=== PATIENT | female | born 1990 | race Caucasian/White ===

== ENCOUNTER → 2017-03-16 | Outpatient (CLI) | payer OTHER ==
[2017-03-16 17:20] LABS: BLOOD UREA NITROGEN 13 mg/dl (7-18); BUN/CREATININE RATIO 9.9 (10-20); CALCIUM 9.1 mg/dl (8.5-10.1); CARBON DIOXIDE 29 mmol/L (21-32); CHLORIDE 103 mmol/L (98-107); CHOLESTEROL 275 mg/dl (0-200); GLUCOSE,FASTING 95 mg/dl (70-99); POTASSIUM 4.3 mmol/L (3.5-5.1); SODIUM 136 mmol/L (136-145)
[2017-03-16 17:51] LABS: CHOLESTEROL/HDL RATIO 4.3; HDL CHOLESTEROL 64 mg/dl; LDL CHOLESTEROL CALCULATED 185 mg/dl; TRIGLYCERIDES 130 mg/dl (0-150); VERY LOW DENSITY LIPOPROT CALC 26 mg/dl
== END | disposition home or self-care (01) ==
LOC: C.LABPBG 13:08
PROVIDERS: ATTEND Physician Assistant
DX: E03.9 Hypothyroidism, unspecified (principal); Z00.00 Encounter for general adult medical examination without abnormal findings

== ENCOUNTER → 2017-05-04 | Outpatient (CLI) | payer OTHER ==
[2017-05-04 17:24] LABS: BLOOD UREA NITROGEN 10 mg/dl (7-18); BUN/CREATININE RATIO 9.5 (10-20); CALCIUM 9.1 mg/dl (8.5-10.1); CARBON DIOXIDE 24 mmol/L (21-32); CHLORIDE 104 mmol/L (98-107); CREATININE 1.04 mg/dl (0.60-1.20); GLUCOSE 105 mg/dl (70-99); POTASSIUM 3.4 mmol/L (3.5-5.1); SODIUM 135 mmol/L (136-145)
== END | disposition home or self-care (01) ==
LOC: C.LABPBG 11:46
PROVIDERS: ATTEND Family Medicine
DX: E03.9 Hypothyroidism, unspecified (principal); R79.89 Other specified abnormal findings of blood chemistry

== ENCOUNTER → 2017-06-27 | Outpatient (CLI) | payer OTHER ==
[2017-06-27 13:17] LABS: BLOOD UREA NITROGEN 17 mg/dl (7-18); CALCIUM 9.6 mg/dl (8.5-10.1); CARBON DIOXIDE 28 mmol/L (21-32); GLUCOSE 101 mg/dl (70-99); SODIUM 137 mmol/L (136-145)
== END | disposition home or self-care (01) ==
LOC: C.LABPBG 09:36
PROVIDERS: ATTEND Family Medicine
DX: E87.6 Hypokalemia (principal)

== ENCOUNTER → 2017-10-17 | Outpatient (CLI) | payer OTHER ==
[2017-10-17 17:11] LABS: ALBUMIN 4.3 gm/dl (3.4-5.0); ALKALINE PHOSPHATASE 70 U/L (45-117); ALT/SGPT 27 U/L (12-78); AST/SGOT 47 U/L (15-37); BLOOD UREA NITROGEN 11 mg/dl (7-18); CARBON DIOXIDE 27 mmol/L (21-32); CHOLESTEROL 221 mg/dl (0-200); GLUCOSE 88 mg/dl (70-99); LDL CHOLESTEROL CALCULATED 143 mg/dl; POTASSIUM 3.8 mmol/L (3.5-5.1); SODIUM 137 mmol/L (136-145); TOTAL PROTEIN 8.4 gm/dl (6.4-8.2)
== END | disposition home or self-care (01) ==
LOC: C.LABPBG 12:21
PROVIDERS: ATTEND Family Medicine
DX: E03.9 Hypothyroidism, unspecified (principal); E78.5 Hyperlipidemia, unspecified

== ENCOUNTER → 2017-10-24 | Outpatient (CLI) | payer OTHER ==
[2017-10-24 17:18] LABS: BLOOD UREA NITROGEN 18 mg/dl (7-18); CALCIUM 9.1 mg/dl (8.5-10.1); CARBON DIOXIDE 26 mmol/L (21-32); CREATININE 1.09 mg/dl (0.60-1.20); GLUCOSE 81 mg/dl (70-99); POTASSIUM 3.9 mmol/L (3.5-5.1); SODIUM 135 mmol/L (136-145)
== END | disposition home or self-care (01) ==
LOC: C.LABPBG 12:19
PROVIDERS: ATTEND Family Medicine
DX: Z00.00 Encounter for general adult medical examination without abnormal findings (principal)

== ENCOUNTER → 2017-12-24 | Outpatient (CLI) | payer OTHER | END | disposition home or self-care (01) | LOC: C.PAPS 18:19 | PROVIDERS: ATTEND Obstetrics & Gynecology | DX: Z12.4 Encounter for screening for malignant neoplasm of cervix (principal) ==

== ENCOUNTER → 2017-12-24 | Outpatient (CLI) | payer OTHER | END | disposition home or self-care (01) | LOC: C.LABSPEC 17:50 | PROVIDERS: ATTEND Obstetrics & Gynecology | DX: Z36.89 Encounter for other specified antenatal screening (principal) ==

== ENCOUNTER → 2017-12-25 | Outpatient (CLI) | payer OTHER ==
[2017-12-25 16:43] LABS: BASO % 0.2 %; BASO ABS # 0.02 K/uL (0-0.2); EOS % 0.7 %; EOS ABS # 0.06 K/uL (0-0.5); HEMATOCRIT 35.6 % (37-47); HEMOGLOBIN 12.1 g/dL (12.0-16.0); IG# 0.02 K/uL (0.00-0.02); LYMPH % 17.7 %; LYMPH ABS # 1.48 K/uL (1.2-3.4); MEAN CELL VOLUME 87.7 fL (80-100); MEAN CORPUSCULAR HEMOGLOBIN 29.8 pg (25-34); MEAN PLATELET VOLUME 10.4 fL (7.4-10.4); MONO % 2.5 %; MONO ABS # 0.21 K/uL (0.11-0.59); NEUT % 78.7 %; NEUT ABS # 6.58 K/uL (1.4-6.5); PLATELET COUNT 329 K/uL (130-400); RED CELL DISTRIBUTION WIDTH CV 12.1 % (11.5-14.5); RED CELL DISTRIBUTION WIDTH SD 38.5 fL (36.4-46.3); WHITE BLOOD COUNT 8.37 K/uL (4.8-10.8)
== END | disposition home or self-care (01) ==
LOC: C.LABPBG 13:58
PROVIDERS: ATTEND Obstetrics & Gynecology
DX: E03.9 Hypothyroidism, unspecified (principal); Z36.89 Encounter for other specified antenatal screening

== ENCOUNTER 2020-09-14 05:25 | Inpatient (IN) ==
--- NOTE | 2020-07-20 13:54 | Anesthesiology Consultation ---
Date of Service July 20, 2020 Assessment & Plan (1) Encounter for pre-operative examination: Per assessment on 07/20: Travel screen negative. No known COVID-19 positive contacts or current COVID-19 related symptoms. Surgeon arranging preop COVID testing (scheduled 09/07; EDITH Gutiérrez). Awaiting results. Chart Review Chart Review: Patient NOT seen in Pre Admission Testing and windows vmware engineer initiated History Surgery Operation Date: 09/14/20 07:30 Proposed Procedures p Section in LD - Ella Tang MD, FACOG Height/Weight Height: 4 ft 9 in Weight: 90.718 kg Allergies Allergy/AdvReac Type Severity Reaction Status Date / Time No Known Drug Allergies Allergy Verified 07/20/20 13:20 Medications Home Medications Medication Instructions Recorded Confirmed Last Taken albuterol sulfate 2 inha INH QID PRN #6.7 gm 03/26/19 07/20/20 Unknown aspirin [Aspir-81] 81 mg PO HS 07/20/20 07/20/20 Unknown cholecalciferol (vitamin D3) 50 mcg PO PM 07/20/20 07/20/20 Unknown famotidine [Pepcid] 20 mg PO DAILY PRN 07/20/20 07/20/20 Unknown levothyroxine 75 mcg PO QAM 07/20/20 07/20/20 Unknown levothyroxine 200 mcg PO QAM 07/20/20 07/20/20 Unknown no.144-folic acid 1 tab PO PM 07/20/20 07/20/20 Unknown [] Past Medical History Medical History (Updated 07/20/20 @ 13:52 by Ella Moore) Acid reflux pepcid prn Anti-M isoimmunization affecting , antepartum being monitored with OB Anxiety no meds at present CKD (chronic kidney disease) stage 3, under surveillance, most recent available creatinine WNL (03/15/20 creatinine 0.72) Depression no meds at present High cholesterol Hx of bronchitis reason inh prescribed > rare use, no recent issues Hypothyroidism Past Family History Family History Family/Other Cardiac disorder paternal GF Carcinoma of blood vessel Father Drinking problem History of anemia Depression Liver disease Hypothyroidism Sister Depression Grandmother (Paternal) Hyperthyroidism Grandmother (Paternal) Diabetes Hypertension Grandmother (Maternal) Diabetes Other Alcohol abuse by father No pertinent family history Denies family history of Colon cancer Ovarian cancer Prostate cancer Myocardial infarction Breast cancer Past Surgical History Surgical History (Updated 07/20/20 @ 13:30 by Lupe Mcconnell RN) H/O section x1 History of myringotomy Social History Smoking Status: Never smoker Do You Dip or Chew Tobacco: No Hx Alcohol Use: No Hx Substance Use: No substance use type: does not use Testing Laboratory Results 06/30/20 H/H 10.07/03.6 TSH 50.600 FREE T4 0.59 OB aware. Fluctuating thyroid levels (improved from 03/2020 labs, worsened from 05/2020 labs) > Thyroid labs/levothyroxine dose under close surveillance by PCP/OB > PCP aware of 06/2020 results and have been trying to set patient up with endocrine (patient has refused previously) > levels planned to be rechecked multiple times by PCP ([facility]/Dr. Fernando) prior to scheduled c/s (planned for q4 weeks) and PCP/OB attempting to have patient evaluated by endocrine prior to c/s. 03/15/20 WBC 9.12 PLATELETS 343 SODIUM 137 POTASSIUM 3.4 CHLORIDE 106 CO2 23 BUN 10 CREATININE 0.72 GLUCOSE 87 01/14/20 hgba1c 5.3%
--- NOTE | 2020-09-08 14:57 | PAT Medication Instructions ---
Medication Instructions Date of Service September 08, 2020 Home Medications Medication Instructions Recorded albuterol sulfate 2 inha INH QID PRN #6.7 gm 03/26/19 levothyroxine 150 mcg capsule 150 mcg PO DAILY #30 cap 08/12/20 levothyroxine 200 mcg tablet 200 mcg PO QAM #30 tab 08/12/20 albuterol sulfate 2 inha INH QID PRN aspirin [Aspir-81] 81 mg PO HS cholecalciferol (vitamin D3) 50 mcg PO PM famotidine [Pepcid] 20 mg PO DAILY PRN no.144-folic acid [] 1 tab PO PM levothyroxine 150 mcg capsule 150 mcg PO DAILY levothyroxine 200 mcg tablet 200 mcg PO QAM ASK your surgeon for instructions aspirin [Aspir-81] 81 mg PO HS Take morning of surgery With a small sip of water, OTHERWISE NOTHING TO EAT OR DRINK AFTER MIDNIGHT: albuterol sulfate 2 inha INH QID PRN (if needed, and bring with you to the hospital) famotidine [Pepcid] 20 mg PO DAILY PRN (if needed) levothyroxine 150 mcg capsule 150 mcg PO DAILY levothyroxine 200 mcg tablet 200 mcg PO QAM Take evening before surgery albuterol sulfate 2 inha INH QID PRN (if needed) cholecalciferol (vitamin D3) 50 mcg PO PM famotidine [Pepcid] 20 mg PO DAILY PRN (if needed) no.144-folic acid [] 1 tab PO PM Other Notes If you have any questions please call us at [phone] or [phone] or [phone] or [phone]
--- NOTE | 2020-09-13 11:56 | Anesthesiology Consultation ---
Date of Service September 13, 2020 Assessment & Plan (1) Encounter for pre-operative examination: COVID Status: As of 09/13 assessment, patient denies travel to endemic area, known exposure/sick contacts, or symptoms of COVID19. Patient instructed that they and their household members must follow strict social distancing guidelines, wear a mask in public and avoid travel/events/gatherings for 14 days prior to surgery. Preoperative COVID19 testing to be completed prior to surgery per surgeon's arrangements. Patient made aware to self-isolate as much as possible between COVID testing and surgery. CBC and Type and Screen still pending. Patient has known h/o antibodies. Extra tubes of blood were drawn at request of Blood Bank. PCP notified of change in TSH/normal T4. Chart Review Chart Review: Acceptable Risk for Surgery and Patient seen in Pre Admission Testing Teaching & Discussion Instructed NPO after midnight before surgery, except medications with 15 cc of water. Medication instructions provided according to the PAT guidelines. History Surgery Operation Date: 09/14/20 07:30 Proposed Procedures p Section - Ella Tang MD, FACOG Height/Weight Height: 4 ft 9 in Weight: 91.9 kg Allergies Allergy/AdvReac Type Severity Reaction Status Date / Time No Known Drug Allergies Allergy Verified 09/13/20 10:33 Medications Home Medications Medication Instructions Recorded Confirmed Last Taken albuterol sulfate 2 inha INH QID PRN #6.7 gm 03/26/19 09/13/20 Unknown aspirin [Aspir-81] 81 mg PO HS 07/20/20 09/13/20 Unknown cholecalciferol (vitamin D3) 50 mcg PO PM 07/20/20 09/13/20 Unknown famotidine [Pepcid] 20 mg PO DAILY PRN 07/20/20 09/13/20 Unknown no.144-folic acid 1 tab PO PM 07/20/20 09/13/20 Unknown [] levothyroxine 150 mcg capsule 150 mcg PO DAILY #30 cap 08/12/20 09/13/20 Unknown levothyroxine 200 mcg tablet 200 mcg PO QAM #30 tab 08/12/20 09/13/20 Unknown Past Medical History Medical History Acid reflux pepcid prn Anti-M isoimmunization affecting , antepartum being monitored with OB Anxiety no meds at present CKD (chronic kidney disease) stage 3, under surveillance, most recent available creatinine WNL (03/15/20 creatinine 0.72) Depression no meds at present High cholesterol Hx of bronchitis reason inh prescribed > rare use, no recent issues Hypothyroidism TSH has been significantly abnormal throughout . Pt was referred to endocrine but never went. Most recent TSH 190, but Free T4 normal (08/11/20). Obesity affecting Exercise / Class Metabolic Activity II 4-5 Yardwork/Stairs/Walk up hill (No CP or SOB with 1 FOS when not ) Past Family History Family History Family/Other Cardiac disorder paternal GF Carcinoma of blood vessel Father Drinking problem History of anemia Depression Liver disease Hypothyroidism Sister Depression Grandmother (Paternal) Hyperthyroidism Grandmother (Paternal) Diabetes Hypertension Grandmother (Maternal) Diabetes Other Alcohol abuse by father No pertinent family history Denies family history of Colon cancer Ovarian cancer Prostate cancer Myocardial infarction Breast cancer Past Surgical History Surgical History (Updated 09/13/20 @ 15:32 by Napoleon Wilde) H/O section x1. Pt reports no issues with this sx. History of myringotomy Past Anesthesia History No Hx of Anesthesia Complications and No Family Hx of Anesthesia Complications History of PONV No Hx of PONV and No Hx of Motion Sickness Social History Smoking Status: Never smoker Do You Dip or Chew Tobacco: No Hx Alcohol Use: No Hx Substance Use: No substance use type: does not use Review of Systems Pt denies any recent chest pain, shortness of breath, palpitations, cough, fever, URI, or uncontrolled acid reflux. Physical Exam Vital Signs BP: 118/80 P: 87bpm SPO2: 98% RA T: R: ENMT Mouth: no dental restorations, no chipped teeth and no loose teeth Thyromental Distance: > or= 3.5 Finger Breadths Mallampati Class: III Neck normal visual inspection; neck extension not limited Respiratory normal respiratory effort, lungs clear to auscultation Cardiovascular Rate/Rhythm: regular rate and regular rhythm Heart Sounds: no murmur Extremities: + edema (trace B/L) Lab Results Anesthesia Preop Results Results Anesthesia Widget: TSH 0.164 uIu/ml (0.300-4.500) L 09/13/20 Free T4 1.47 ng/dl (0.8-1.6) 09/13/20
--- NOTE | 2020-09-13 17:43 | History & Physical Report ---
Date of Service September 13, 2020 Assessment & Plan (1) Supervision of high risk , antepartum: IUP at 39 weeks presents for repeat C/S today's TSH is now within the normal range as is the free T4. the procedure as well as the risks were reviewed with the patient and her . all questions were answered to their satisfaction and they are willing to proceed. History of Present Illness Primary Care Provider: Casie Fernando DO Patient is a 29 yo white female EDC 09/21/20 who presents at 39 weeks for repeat C/S. First C/S was done for arrest of dilation at 9cm. Patient now presents at 39 weeks for repeat C/S. this time has been complicated by anti-M antibody but FOB was tested and is positive for the M antigen.anti-M titers never jose above 1:8. She has also had markedly elevated TSH during this despite increases in Synthroid doses. She had not been seen by Endocrine despite our best efforts and Dr. Fernando's as well to get her scheduled for a follow up. Allergies Allergy/AdvReac Type Severity Reaction Status Date / Time No Known Drug Allergies Allergy Verified 09/13/20 10:33 Home Medications Medication Instructions Recorded Confirmed Type albuterol sulfate 2 inha INH QID PRN #6.7 gm 03/26/19 09/13/20 Rx aspirin [Aspir-81] 81 mg PO HS 07/20/20 09/13/20 History cholecalciferol (vitamin D3) 50 mcg PO PM 07/20/20 09/13/20 History famotidine [Pepcid] 20 mg PO DAILY PRN 07/20/20 09/13/20 History no.144-folic acid 1 tab PO PM 07/20/20 09/13/20 History [] levothyroxine 150 mcg capsule 150 mcg PO DAILY #30 cap 08/12/20 09/13/20 Rx levothyroxine 200 mcg tablet 200 mcg PO QAM #30 tab 08/12/20 09/13/20 Rx Patient History Medical History Acid reflux pepcid prn Anti-M isoimmunization affecting , antepartum being monitored with OB Anxiety no meds at present CKD (chronic kidney disease) stage 3, under surveillance, most recent available creatinine WNL (03/15/20 creatinine 0.72) Depression no meds at present High cholesterol Hx of bronchitis reason inh prescribed > rare use, no recent issues Hypothyroidism TSH has been significantly abnormal throughout . Pt was referred to endocrine but never went. Most recent TSH 190, but Free T4 normal (08/11/20). Obesity affecting Surgical History H/O section x1. Pt reports no issues with this sx. History of myringotomy Family History Family/Other Cardiac disorder paternal GF Carcinoma of blood vessel Father Drinking problem History of anemia Depression Liver disease Hypothyroidism Sister Depression Grandmother (Paternal) Hyperthyroidism Grandmother (Paternal) Diabetes Hypertension Grandmother (Maternal) Diabetes Other Alcohol abuse by father No pertinent family history Denies family history of Colon cancer Ovarian cancer Prostate cancer Myocardial infarction Breast cancer Social History Smoking Status: Never smoker Second Hand Exposure: Yes (boyfriend); Hx Alcohol Use: No Hx Substance Use: No Preferred Language: Syrian Communication Ability: Effective Visual Impairment: No Limitations Hearing Ability: Hard of Hearing [employer] Required: No Beliefs That Will Affect Care: None marital status: Single marital status details: Jozef (24)- [phone] Current Living Situation: Parent and Family Current Living Situation Comment: boyfriend, son, cat (boyfriend does litter) current occupational status: employed current occupation: [employer] associate Feels Safe at Home: Yes Dental Care, Regularly: Yes Physical Activity Frequency: 3-4 Times per Week Seatbelt Use: always Sunscreen Use: Yes Assistive Devices: None Review of Systems All systems reviewed & are unremarkable except as noted in HPI & below Physical Exam Constitutional: WD/WN, vitals as above Respiratory: normal respiratory effort, lungs clear to auscultation Cardiovascular: RRR, no murmur, no edema Gastrointestinal (Abdomen): normal bowel sounds, soft, nontender, no hepatosplenomegaly Inspection/Auscultation: + abdominal surgical scar (well healed -low transverse) Genitourinary: OB Exam Abdomen: + fundal height (term), + heart tones, + vertex (140 bpm) and + estimated weight (7-8 pounds) Coding Level of Care Code None Diagnoses Supervision of high risk , antepartum O09.90
[2020-09-14] MEDS ORDERED: SODIUM CHLORIDE 0.9% 250 ML IV PRN (05:37)
[2020-09-14 05:55] LABS: Basophils # (auto) 0.02 K/uL (0-0.2); Basophils % (auto) 0.3 %; Eosinophils # (auto) 0.04 K/uL (0-0.5); Eosinophils % (auto) 0.5 %; Hematocrit (blood only) 27.8 % (37-47); Hemoglobin 8.8 g/dL (12.0-16.0); Immature Granulocytes # (auto) 0.07 K/uL (0.00-0.02); Immature Granulocytes % (auto) 0.9 %; Lymphocytes # (auto) 1.56 K/uL (1.2-3.4); Lymphocytes % (auto) 19.6 %; Mean Corpuscular Hemoglobin 25.6 pg (25-34); Mean Corpuscular Hgb Conc 31.7 g/dL (32-36); Mean Corpuscular Volume 80.8 fL (80-100); Monocytes # (auto) 0.44 K/uL (0.11-0.59); Monocytes % (auto) 5.5 %; Neutrophils # (auto) 5.81 K/uL (1.4-6.5); Neutrophils % (auto) 73.2 %; Platelet Count 280 K/uL (130-400); RDW Coefficient of Variation 15.2 % (11.5-14.5); Red Blood Count 3.44 M/uL (4.2-5.4); White Blood Count 7.94 K/uL (4.8-10.8)
[2020-09-14] MEDS ORDERED: CITRIC ACID/SODIUM CITRATE 15 ML UDC PO SCH (06:00)
[2020-09-14] MEDS ORDERED: LACTATED RINGER'S 1,000 ML IV SCH ×2 (06:00→09:00)
[2020-09-14] MEDS ORDERED: ceFAZolin 3,000 MG in DEXTROSE 5% 50 ML IV SCH (06:00)
[2020-09-14] MEDS ORDERED: MoRPHine SULFATE PF 1 MG/ML 10 ML AMP/VIAL ONE (07:07)
[2020-09-14] MEDS ORDERED: ONDANSETRON INJ 2 MG/ML 2 ML VIAL ONE (07:07)
[2020-09-14] MEDS ORDERED: fentaNYL citrate 100 MCG/2 ML VIAL ONE (07:07)
[2020-09-14] MEDS ORDERED: SODIUM CHLORIDE 0.9% INJ 10 ML VIAL ONE (07:08)
[2020-09-14] MEDS ORDERED: OXYTOCIN 10 UNITS/ML VIAL ONE (07:08)
--- NOTE | 2020-09-14 07:28 | History & Physical Bridge Note ---
Date of Service September 14, 2020 History & Physical Bridge Note I have examined the patient, reviewed the History & Physical and in the interval since the performance of the History & Physical I have noted the following changes of clinical significance: no changes noted
[2020-09-14] MEDS ORDERED: NALOXONE HCL 0.08 MG in SYRINGE 1.8 ML IV PRN (07:44)
[2020-09-14] MEDS ORDERED: diphenhydrAMINE 50 MG/ML VIAL IV PRN (07:44)
[2020-09-14] MEDS ORDERED: ePHEDrine sulfate 50 MG/ML AMP IV PRN (07:44)
[2020-09-14] MEDS ORDERED: ACETAMINOPHEN 1000 MG/100 ML IV IV PRN (07:44)
[2020-09-14] MEDS ORDERED: MoRPHine SULFATE PF 1 MG/ML 10 ML AMP/VIAL INT SPINAL ONE (07:44)
[2020-09-14] MEDS ORDERED: NALOXONE HCL 0.4 MG/1 ML VIAL/CARP IV PRN (07:44)
[2020-09-14] MEDS ORDERED: LACTATED RINGER'S 500 ML IV PRN (07:44)
[2020-09-14] MEDS ORDERED: NALOXONE HCL 1 MG in SODIUM CHLORIDE 0.9% 1000ML 1,000 ML IV PRN (07:44)
[2020-09-14] MEDS ORDERED: ONDANSETRON INJ 2 MG/ML 2 ML VIAL IV PRN (07:44)
[2020-09-14] MEDS ORDERED: HYDROmorphone INJ 0.5 MG/0.5 ML SYR IV PRN (07:44)
[2020-09-14] MEDS ORDERED: SODIUM CHLORIDE 0.9% 1000ML 1,000 ML IV SCH (07:45)
[2020-09-14] MEDS ORDERED: DC INTRASPINAL MORPHINE SCH (07:45)
[2020-09-14] MEDS ORDERED: NO NARCOTICS OR SEDATIVES SCH (07:45)
[2020-09-14] MEDS ORDERED: ePHEDrine sulfate 50 MG/ML SYR ONE (08:17)
[2020-09-14] MEDS ORDERED: PHENYLEPHRINE 100MCG/ML 5ML SYR ONE (08:17)
[2020-09-14] MEDS ORDERED: KETOROLAC 30 MG/ML VIAL IV PRN (08:47)
[2020-09-14] MEDS ORDERED: ALBUTEROL HFA 8 GM INHALER INH PRN (08:55)
[2020-09-14] MEDS ORDERED: FAMOTIDINE 20 MG TAB PO PRN (08:55)
--- NOTE | 2020-09-14 08:55 | Post Operative Brief Note ---
PG Immediate Post Op with CF Date of Surgery September 14, 2020 Pre & Post Diagnosis Operation Date: 09/14/20 07:30 Pre-Op Diagnosis: Hx of Section; Desires Repeat Section Post-Op Diagnosis: Same as Preop I identified the patient and participated in the time-out.: Yes Procedure Operation Date: 09/14/20 07:30 Actual Procedures p Section; Live Male at 0821 in OR # 3(Bilateral) - Ella Tang MD, FACOG Surgeon Ella Tang MD, FACOG Manager Floor Kaylynn Eisenberg MD Estimated Blood Loss 500 Findings Consistent with Post-Op Diagnosis Specimens Specimen Description: Placenta (Hold) Cord Blood Drains Rice Catheter
[2020-09-14] MEDS ORDERED: DIPHTHERIA/TETANUS/PERTUSSIS 0.5 ML SYR/VIAL IM ONE (08:58)
[2020-09-14] MEDS ORDERED: SENNA 8.6 MG TAB PO PRN (08:58)
[2020-09-14] MEDS ORDERED: SUPERCREAM 0.870% 15 GM JAR EXT PRN (08:58)
[2020-09-14] MEDS ORDERED: BENZOCAINE 20% AER SPR 82.5 GM CAN EXT PRN (08:58)
[2020-09-14] MEDS ORDERED: HYDROCORTISONE ACETATE 25 MG SUPP PR PRN (08:58)
[2020-09-14] MEDS ORDERED: MAGNESIUM HYDROXIDE SUSP 30 ML UDC PO PRN (08:58)
[2020-09-14] MEDS ORDERED: LEVOTHYROXINE SODIUM 125 MCG TABLET PO SCH (09:00)
[2020-09-14] MEDS: OXYTOCIN 20 UNITS in LACTATED RINGER'S 1,000 ML IV SCH ×2 (10:15→21:12)
--- NOTE | 2020-09-14 11:02 | Operative Report ---
PG Post Operative Report Pre & Post Diagnosis Operation Date: 09/14/20 07:30 Pre-Op Diagnosis: Hx of Section; Desires Repeat Section Post-Op Diagnosis: Same as Preop I identified the patient and participated in the time-out.: Yes Procedure Operation Date: 09/14/20 07:30 Actual Procedures p Section; Live Male at 0821 in OR # 3(Bilateral) - Ella Tang MD, FACOG Surgeon Ella Tang MD, FACOG Professor Of Communication Kaylynn Eisenberg MD Estimated Blood Loss 500 Findings Consistent with Post-Op Diagnosis Uterus was gravid and consistent with a term in size bilateral ovaries and Tubes were grossly normal.There were filmy omental adhesions to the anterior surface of the fundus of the uterus which were divided with the Bovie. The lower uterine segment was also noted to be quite thin. Specimens placenta on hold Drains Rice to straight drainage- cleare urine at the end of the case. Anesthesia Type Spinal Complications none Disposition Accompanied Patient To Recovery: Yes Disposition: L&D Indications Patient is a 29-year-old 2 para 1-0-0-1 white female who presents at 39 weeks for repeat section. First section was done because of failure to progress. This has been complicated by hypothyroid thyroidism which was difficult to control, anti-M isoimmunization for which titers never jose above 128. She also has stage III chronic kidney disease which remained stable throughout her . Patient is requesting repeat section she understands the risk procedure and is willing to proceed. Description of Procedure At the patient was prepped and draped in the usual sterile fashion a low transverse skin incision was made with a scalpel and carried to the fascia with the same scalpel. The fascial incision was then extended with bandage scissors and the other edges grasped with Vandana clamps. The underlying rectus muscles were bluntly and sharply dissected off of the overlying fascia. The rectus muscles were then divided on the midline with after entering the peritoneal cavity with a hemostat. A knife was used to divide the rectus muscles along the midline. Metzenbaum scissors were used to take the bladder down off of the anterior surface of the uterus. The lower uterine segment was noted to be quite thin. This was entered with a scalpel to the level of the membranes. There was thin meconium staining of the amniotic fluid noted after rupturing. The was delivered from the vertex presentation with moderate fundal pressure. A vacuum was used to assist the head into the uterine incision. After the head was delivered the right hand was delivered through the uterine incision as well. The rest of the infant delivered easily, and was moving all 4 limbs with good respiratory effort. The was handed off to vocational training director who was attendance. After the cord was clamped and cut. The placenta was then expressed intact with a three-vessel cord. The uterus was exteriorized and covered with a clean lap sponge. The uterine cavity was then explored and found to be free of any placental tissue or membranes. The uterus was then closed in 2 layers in a running locking imbricating fashion with 0 Monocryl. Bleeding at the left side of the incision was secured with an additional [id number] stitch of 0 Monocryl. Stable hematoma developed in this area. The posterior cul-de-sac was then Suctioned for small amount of fluid. The uterine incision was examined once more and continue to have excellent hemostasis and the hematoma at the left side of the incision was stable. The uterus was placed back inside the abdominal cavity and hemostasis remained satisfactory at the uterine incision. The anterior cul-de-sac was irrigated with a small amount of normal saline solution. The rectus muscle were then brought together in the midline with individual stitches of 0 Monocryl. A bleeding site in the right rectus muscle was secured with a [id number] stitch of 0 Monocryl. The fascia was then closed in a running fashion with 0 Vicryl. After irrigating the adipose layer, the skin was closed in a subcuticular fashion with 4-0 Vicryl. Urine was clear at the end of the case, mother and infant were in stable condition upon arrival back in labor and delivery. Of note, bleeding was controlled with dilute Pitocin. I attest to the content of the Intraoperative Record and any orders documented therein. Any exceptions are noted below. OB Procedure charges OB Charges 86463 C/S
--- NOTE | 2020-09-14 12:16 | Anesthesiology Progress Note ---
Date of Service September 14, 2020 Anesthesia Post Procedure Vital Signs Vital Signs: Temp Pulse Resp BP Pulse Ox 09/14/20 12:07 70 131/78 09/14/20 12:05 79 99 09/14/20 12:00 76 99 09/14/20 11:57 88 129/73 09/14/20 11:55 77 98 09/14/20 11:50 73 95 09/14/20 11:47 80 132/70 09/14/20 11:45 64 95 09/14/20 11:40 69 99 09/14/20 11:37 68 137/75 09/14/20 11:35 79 97 09/14/20 11:30 68 98 09/14/20 11:27 68 134/72 09/14/20 11:25 73 98 09/14/20 11:20 70 98 09/14/20 11:17 68 134/83 09/14/20 11:15 72 100 09/14/20 11:10 72 99 09/14/20 11:07 69 144/92 H 09/14/20 11:05 36.4 C L 70 16 98 09/14/20 11:00 71 99 09/14/20 10:57 65 142/86 H 09/14/20 10:55 64 98 09/14/20 10:50 68 98 09/14/20 10:47 78 131/100 09/14/20 10:45 78 99 09/14/20 10:40 69 18 99 09/14/20 10:37 62 142/79 H 09/14/20 10:35 73 98 09/14/20 10:30 65 99 09/14/20 10:27 64 135/75 09/14/20 10:25 63 98 09/14/20 10:20 68 99 09/14/20 10:17 59 L 151/85 H 09/14/20 10:15 63 97 09/14/20 10:10 60 92 09/14/20 10:07 62 134/79 09/14/20 10:05 36.4 C L 61 14 99 09/14/20 10:00 68 97 09/14/20 09:57 58 L 126/76 09/14/20 09:55 64 18 98 09/14/20 09:50 65 96 09/14/20 09:47 65 134/65 09/14/20 09:45 66 18 98 09/14/20 09:40 74 98 09/14/20 09:38 64 128/56 L 09/14/20 09:35 76 18 97 09/14/20 09:30 73 99 09/14/20 09:27 67 108/69 09/14/20 09:25 65 16 98 09/14/20 09:20 70 98 09/14/20 09:17 70 113/63 09/14/20 09:15 81 18 99 09/14/20 09:11 79 91 09/14/20 09:10 90 97 09/14/20 09:07 78 111/61 09/14/20 09:05 36.4 C L 93 H 92 09/14/20 07:05 36.9 C 80 16 134/85 09/14/20 05:38 36.6 C 85 18 125/81 09/14/20 05:37 85 125/81 Pain Intensity Upper Abdomen: Pain Intensity: 3 Transfer of Care Handoff Completed per policy Notes Mental Status: alert / awake / arousable and participated in evaluation Nausea / Vomiting: adequately controlled Pain: adequately controlled Airway Patency, RR, SpO2: stable & adequate BP & HR: stable & adequate Hydration State: stable & adequate Neuraxial Anesthesia: was administered and sensory block is resolving Anesthetic Complications: no major complications apparent and Pt Satisfied with anesthetic care
[2020-09-14] MEDS: SIMETHICONE 80 MG CHEW PO SCH ×3 (13:21→20:08)
[2020-09-14] MEDS: DOCUSATE SODIUM 100 MG CAP PO SCH (20:08)
[2020-09-15] MEDS ORDERED: MEPERIDINE HCL 50 MG/ML CARP IV PRN (01:45)
[2020-09-15] MEDS ORDERED: PROMETHAZINE HCL 25 MG in SODIUM CHLORIDE 0.9% 50 ML IV PRN (01:45)
[2020-09-15] MEDS ORDERED: ONDANSETRON INJ 2 MG/ML 2 ML VIAL IV PRN (01:45)
[2020-09-15] MEDS ORDERED: ZOLPIDEM TARTRATE 5 MG TAB PO PRN (01:45)
[2020-09-15] MEDS ORDERED: diphenhydrAMINE Capsule 25 MG CAP PO PRN (01:45)
[2020-09-15] MEDS ORDERED: diphenhydrAMINE 50 MG/ML VIAL IV PRN (01:45)
[2020-09-15] MEDS: LEVOTHYROXINE SODIUM 150 MCG TABLET PO SCH (06:29)
[2020-09-15] MEDS: LEVOTHYROXINE SODIUM 200 MCG TABLET PO SCH (06:29)
[2020-09-15 06:45] LABS: Basophils # (auto) 0.02 K/uL (0-0.2); Basophils % (auto) 0.2 %; Eosinophils # (auto) 0.04 K/uL (0-0.5); Eosinophils % (auto) 0.4 %; Hematocrit (blood only) 25.6 % (37-47); Hemoglobin 8.2 g/dL (12.0-16.0); Immature Granulocytes # (auto) 0.06 K/uL (0.00-0.02); Immature Granulocytes % (auto) 0.6 %; Lymphocytes # (auto) 0.85 K/uL (1.2-3.4); Lymphocytes % (auto) 8.7 %; Mean Corpuscular Hemoglobin 25.8 pg (25-34); Mean Corpuscular Volume 80.5 fL (80-100); Monocytes # (auto) 0.62 K/uL (0.11-0.59); Monocytes % (auto) 6.3 %; Neutrophils # (auto) 8.22 K/uL (1.4-6.5); Neutrophils % (auto) 83.8 %; Platelet Count 235 K/uL (130-400); RDW Coefficient of Variation 15.4 % (11.5-14.5); RDW Standard Deviation 45.1 fL (36.4-46.3); Red Blood Count 3.18 M/uL (4.2-5.4); White Blood Count 9.81 K/uL (4.8-10.8)
--- NOTE | 2020-09-15 06:48 | Obstetrical Progress Note ---
Date of Service September 15, 2020 Assessment & Plan (1) Encounter for care and examination after delivery: satisfactory post-op progress advance diet continue current care plan Day #:: 1 Subjective Voiding: no voiding problems (catheter just removed) Passing Gas:: Yes Diet Tolerance:: clear liquids Lochia:: Small Feeding Type:: bottle feeding pain well controlled- no void yet Physical Exam Constitutional WD/WN, vitals as above Gastrointestinal (Abdomen) normal bowel sounds, soft, nontender, no hepatosplenomegaly dressing dry and intact Psychiatric A+Ox3, euthymic affect Results & Data ([facility]) Vital Signs (Past 12 Hours) Vital Signs Temp Pulse Resp BP Pulse Ox 09/15/20 04:15 98.1 F 81 18 131/87 09/15/20 01:00 18 95 09/15/20 00:00 18 97 09/14/20 23:50 98.6 F 85 18 115/79 09/14/20 23:00 18 97 09/14/20 22:00 18 96 09/14/20 21:00 18 97 09/14/20 20:08 97.9 F 78 18 110/67 09/14/20 20:00 18 97 09/14/20 19:00 16 97
[2020-09-15] MEDS: DOCUSATE SODIUM 100 MG CAP PO SCH ×2 (07:34→21:23)
[2020-09-15] MEDS: SIMETHICONE 80 MG CHEW PO SCH ×4 (07:34→21:23)
[2020-09-15] MEDS: PRENATAL VITAMIN 1 TAB PO SCH (07:34)
[2020-09-15] MEDS: oxyCODONE/ACETAMINOPHEN 5mg/325mg TAB PO PRN ×4 (07:35→21:23)
[2020-09-15] MEDS: FERROUS SULFATE 325 MG TAB PO SCH (07:35)
[2020-09-15] MEDS ORDERED: bisacodyL 5 MG TABEC PO SCH (20:00)
[2020-09-16] MEDS: oxyCODONE/ACETAMINOPHEN 5mg/325mg TAB PO PRN ×2 (02:59→08:23)
[2020-09-16 06:15] LABS: Hematocrit (blood only) 25.3 % (37-47)
[2020-09-16] MEDS: LEVOTHYROXINE SODIUM 150 MCG TABLET PO SCH (06:32)
[2020-09-16] MEDS: LEVOTHYROXINE SODIUM 200 MCG TABLET PO SCH (06:32)
--- NOTE | 2020-09-16 07:03 | Obstetrical Progress Note ---
Date of Service <Katherine Olvera DO - Last Filed: 09/16/20 07:03> September 16, 2020 Assessment & Plan <Katherine Olvera DO - Last Filed: 09/16/20 07:03> (1) state: POD #2 - PNL: Rh pos, RI, GBS neg, COVID neg - Feels well today. Eating well, voiding well, ambulating well. - Hgb low at 8.0. Will start patient on ferrous sulfate 325mg po daily. - Pain well controlled with ibuprofen 600mg Q4H PRN - Satisfactory progression of routine care -- OOB, ambulation, diet progression. - After discharge will have 6 week follow-up with Dr. De Luna. - Plan for d/c home today. Subjective <Katherine Olvera DO - Last Filed: 09/16/20 07:03> Fariba Perdue is a 29 y/o female who is POD #2 following repeat c- section delivery at 39 weeks. She reports feeling well overall this morning. Minimal abdominal cramping and 4/10 pain well managed on analgesics. Voiding without dysuria. Tolerating meals overnight without difficulty, nausea, and vomiting. Patient has been able to ambulate some. She is passing gas. Has persistent lochia with some improvement this morning. Currently bottle feeding. Review of Systems Denies fever or chills. Denies shortness of breath or cough. Denies chest pain. Denies breast pain. Denies dysuria. Denies leg pain or leg swelling. Denies headache or changes in vision. Physical Exam <Katherine Olvera DO - Last Filed: 09/16/20 07:03> General: Alert, oriented. No acute distress. Cardiac: Regular rate and rhythm. No murmurs. Respiratory: Clear to auscultation bilaterally a/p, no wheezes/rales/rhonchi. No increased work of breathing. Symmetrical chest rise. No respiratory distress. Abdomen: Soft, nontender, nondistended. Bowel sounds present. Uterus: Uterine fundus firm, palpable 1 cm above umbilicus on right. Surgical scar clean and healing well. Lower Extremities: No lower extremity edema or swelling. No deep calf pain. Maura's negative bilaterally. Results & Data ([facility]) <Katherine Olvera DO - Last Filed: 09/16/20 07:03> Vital Signs (Past 12 Hours) Vital Signs Temp Pulse Resp BP Pulse Ox 09/15/20 23:10 36.9 C 72 17 107/73 98 09/15/20 19:35 36.5 C 90 18 126/81 98 Laboratory Results 09/16/20 Range/Units 05:42 Hgb 8.0 L (12.0-16.0) g/dL Hct 25.3 L (37-47) % <Joy Bertrand MD, FACOG - Last Filed: 09/16/20 07:23> Co-Signing Physician Notes Resident Physician Supervision Note: I was present with Dr. Olvera during the history and exam. I discussed the case with the resident and agree with the findings and plan as documented in the note. Any exceptions or clarifications are listed here: [None] Documented By: Joy Bertrand MD, FACOG Resident Activity Tracking <Katherine Olvera DO - Last Filed: 09/16/20 07:03> Resident Involvement: Resident Care Provided Care Provided: OB Delivery
[2020-09-16] MEDS ORDERED: FERROUS SULFATE 325 MG TAB PO STA (07:05)
[2020-09-16] MEDS: FERROUS SULFATE 325 MG TAB PO SCH (08:23)
[2020-09-16] MEDS: SIMETHICONE 80 MG CHEW PO SCH (08:23)
[2020-09-16] MEDS: DOCUSATE SODIUM 100 MG CAP PO SCH (08:23)
[2020-09-16] MEDS: PRENATAL VITAMIN 1 TAB PO SCH (08:23)
[2020-09-16] MEDS ORDERED: bisacodyL 10 MG SUPP PR PRN (08:58)
--- NOTE | 2020-09-17 11:04 | Discharge Summary (DS) ---
PRINCIPAL DIAGNOSES: Intrauterine at 39+ weeks, prior section, requesting repeat section. PRINCIPAL PROCEDURE: Repeat low transverse section. HISTORY: The patient is a 29-year-old 2, para 1-0-0-1 white female who presents for repeat section at 39 weeks. Her first section was done because of failure to progress. 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 She also has stage III chronic kidney disease, but that also remained stable throughout her . She underwent the repeat low transverse section without complications. She remained afebrile throughout her hospital stay. She was eating regular diet on first postop day and ambulating without difficulty. She was also voiding without problem. Pain was well controlled with oral pain meds. Hemoglobin on admission was 8.8 with hematocrit of 27.8. First postop day hemoglobin 8.2, hematocrit 25.6 and second postop day hemoglobin 8.0, hematocrit of 25.3. She was sent home with prescription for Percocet 1 or 2 tablets p.o. q. 4 hours p.r.n. pain. She is to avoid ibuprofen use because of her chronic kidney disease. She is to continue with her current thyroid medication dose and will follow up with her primary care physician for adjustments on that medication. She is to take iron 1 tablet daily along with her vitamin until seen in the office in 6 weeks. She is to call for temperature of 101 degrees or higher, heavy vaginal bleeding, burning with urination, increased redness, drainage or pain in her incision, calf tenderness or any other concerns.
== END 2020-09-16 11:40 | disposition home or self-care (01) | DRG 787 ==
LOC: 4S1 05:25 → EDSTATUS 07:30 → 4S2 12:15